=== PATIENT | male | born 1935 | race Caucasian/White ===

== ENCOUNTER → 2016-09-20 | Outpatient (CLI) | payer MEDICARE, OTHER ==
[~2016-09-20] MED LIST: CINNAMON500 MG PO; COREG12.5 MG PO; GENICIN500 MG PO; KLOR-CON M2020 MEQ PO; PRESERVISION A1 EACH PO; SAW PALMETTO450 MG PO; ZOCOR10 MG PO
== END | disposition short-term general hospital (02) ==
LOC: CLUROL 04:54
DX: N40.0 Benign prostatic hyperplasia without lower urinary tract symptoms (principal); K56.60 Unspecified intestinal obstruction